=== PATIENT | female | born 1990 | race Caucasian/White ===

== ENCOUNTER 2019-05-04 08:00 | Inpatient (IN) | payer OTHER ==
[~2019-05-04] VITALS: Ht 157.5 cm; Wt 80.0 kg
[2019-05-04] MEDS ORDERED: RINGERS SOLUTION,LACTATED 1,000 ML IV ONE (08:25)
[2019-05-04] MEDS ORDERED: OXYTOCIN 30 UNITS/LACT RINGERS 500 ML IV PRN (08:28)
[2019-05-04] MEDS ORDERED: RINGERS SOLUTION,LACTATED 1,000 ML IV PRN (08:28)
[2019-05-04] MEDS ORDERED: OXYTOCIN 30 UNITS/LACT RINGERS 500 ML IV ONE (08:28)
[2019-05-04] MEDS ORDERED: FentaNYL CITRATE-PF 100 MCG/2 ML VIAL IVP PRN (08:30)
[2019-05-04] MEDS ORDERED: METOCLOPRAMIDE HCL 5 MG/ML 2 ML VIAL IVP PRN (08:30)
[2019-05-04] MEDS ORDERED: CITRIC ACID/SODIUM CITRATE 30 ML SOLUTION UDCUP PO PRN (08:30)
[2019-05-04] MEDS ORDERED: OXYGEN THERAPY IH SCH (08:30)
[2019-05-04 08:44] VITALS: BP 127/77
[2019-05-04] MEDS ORDERED: ROPIVACAINE HCL/PF 0.2% 100 ML ED ONE (08:51)
[2019-05-04 09:04] LABS: BASOPHILS % (AUTO) 0.3 % (0.0-2.0); EOSINOPHILS % (AUTO) 0.1 % (1.0-6.0); HEMATOCRIT 37.7 % (36-46); HEMOGLOBIN 12.8 g/dL (12.0-16.0); LYMPHOCYTES # (AUTO) 1.9 K/uL (1.0-4.8); LYMPHOCYTES % (AUTO) 18.8 % (22.0-44.0); MEAN CORPUSCULAR HEMOGLOBIN 30.1 pg (26.0-34.0); MEAN CORPUSCULAR VOLUME 88 fL (80-100); MONOCYTES # (AUTO) 0.4 K/uL (0.1-1.0); NEUTROPHILS # (AUTO) 7.9 K/uL (1.8-7.7); NEUTROPHILS % (AUTO) 76.8 % (40.0-70.0); PLATELET COUNT (AUTO)-OB 221 K/uL (150-450); RED BLOOD CELL COUNT(AUTO) 4.26 MIL/uL (4.00-5.20); RED CELL DISTRIBUTION WIDTH 14.2 % (11.5-14.5)
[2019-05-04] MEDS: RINGERS SOLUTION,LACTATED 1,000 ML IV SCH ×2 (09:54→10:26)
[2019-05-04] MEDS ORDERED: PREN-134 PO (10:27)
[2019-05-04] MEDS ORDERED: LANOLIN 7 GM OINTMENT TP PRN (11:30)
[2019-05-04] MEDS ORDERED: ACETAMINOPHEN/CODEINE 300-30 MG TABLET PO PRN ×2 (11:30)
[2019-05-04] MEDS ORDERED: BENZOCAINE 20%/MENTHOL 56 GM SPRAY CANISTER TP PRN (11:30)
[2019-05-04] MEDS ORDERED: GLYCERIN/WITCH HAZEL LEAF 40 PADS JAR TP PRN (11:30)
[2019-05-04] MEDS ORDERED: NALBUPHINE HCL 10 MG/ML VIAL IVP PRN (13:45)
[2019-05-04] MEDS ORDERED: DiphenhydrAMINE HCL 50 MG/ML VIAL IVP PRN (13:45)
[2019-05-04] MEDS ORDERED: ONDANSETRON HCL 4 MG/2 ML VIAL IVP PRN (13:45)
[2019-05-04] MEDS ORDERED: ROPIVACAINE HCL/PF 0.2% 100 ML ED PRN (13:45)
[2019-05-04] MEDS: IBUPROFEN 800 MG TABLET PO SCH ×2 (16:23→21:59)
[2019-05-04] MEDS ORDERED: MAGNESIUM HYDROXIDE SUSPENSION 30 ML UDCUP PO SCH (21:00)
[2019-05-05] MEDS: IBUPROFEN 800 MG TABLET PO SCH ×2 (04:14→09:29)
[2019-05-05] MEDS ORDERED: IBUP-2071 PO (13:45)
== END 2019-05-05 14:00 | disposition home or self-care (01) | DRG 807 ==
LOC: 4S 08:00 → OBSVTOIN 08:00
PROVIDERS: ADMIT Obstetrics & Gynecology; ATTEND Obstetrics & Gynecology
PROC: 10E0XZZ Delivery of Products of Conception, External Approach (ICD-10-PCS; principal; 2019-05-04)
PROC: 0HQ9XZZ Repair Perineum Skin, External Approach (ICD-10-PCS; 2019-05-04)
PROC: 3E0R3BZ Introduction of Anesthetic Agent into Spinal Canal, Percutaneous Approach (ICD-10-PCS; 2019-05-04)
PROC: 00HU33Z Insertion of Infusion Device into Spinal Canal, Percutaneous Approach (ICD-10-PCS; 2019-05-04)
DX: O77.0 Labor and delivery complicated by meconium in amniotic fluid (principal); Z37.0 Single live birth; O70.0 First degree perineal laceration during delivery; Z3A.37 37 weeks gestation of pregnancy
CPT/HCPCS: 86850; 86900; 86901; J2590; J2795; J7120